=== PATIENT | female | born 1955 | race Caucasian/White ===

== ENCOUNTER 2017-04-23 13:32 | Emergency (ER) | payer MEDICARE ==
[~2017-04-23] VITALS: Ht 157.5 cm; Wt 77.1 kg
[~2017-04-23 13:32] MED LIST: APAP500 PO; ASPIR 8181 MG PO; BACTRIM DS TAB1 EACH PO; CARAFATE 1 GM TA1 GM PO; CIPRO500 MG PO; CIPROFLOXACIN500 M1 PO; CYCLOBENZAPRINE5 MG PO; FLEXERIL; FLEXERIL PO; FLOMAX0.4 MG PO; HYDROCODON-ACE1 EAC7 PO; HYDROCODON-ACE1 EAC8 PO; HYDROCODONE-AP1 EAC6 PO; KEFLEX500 MG PO; KETOCONAZOLE60 GM TP; LIPITOR 20 MG T20 M1 PO; NORCO 5-325 TA1 EACH PO; PAXIL10 MG; PERCOCET 5-3251 EACH PO; PERCOCET 7.5-31 EACH PO; REQUIP 0.25 M0.25 M1; REQUIP 0.25 M0.25 M1 PO; REQUIP5 MG PO; Synthroid PO; ZOFRAN ODT4 MG PO; ZOFRAN4 MG PO
[2017-04-23 14:31] LABS: INFLUENZA A ANTIGEN None Detected (None Detect); INFLUENZA B ANTIGEN None Detected (None Detect)
[2017-04-23] MEDS ORDERED: FLONASE 0.05%50 MCG NASAL (15:45)
[2017-04-23] MEDS ORDERED: TESSALON PERLE100 MG PO (15:45)
[2017-04-23 15:55] VITALS: BP 110/65
== END 2017-04-23 15:57 | disposition home or self-care (01) ==
LOC: M.ERS 13:32
PROVIDERS: Family Medicine
DX: J06.9 Acute upper respiratory infection, unspecified (principal); B97.89 Other viral agents as the cause of diseases classified elsewhere; E03.9 Hypothyroidism, unspecified; J45.909 Unspecified asthma, uncomplicated; F17.210 Nicotine dependence, cigarettes, uncomplicated; Z87.442 Personal history of urinary calculi; Z98.890 Other specified postprocedural states; Z90.710 Acquired absence of both cervix and uterus; Z88.6 Allergy status to analgesic agent; Z88.0 Allergy status to penicillin

== ENCOUNTER 2017-07-19 21:48 | Emergency (ER) | payer MEDICARE ==
[~2017-07-19] VITALS: Ht 157.5 cm; Wt 77.1 kg
[~2017-07-19 21:48] MED LIST changes: +FLONASE 0.05%50 MCG NASAL; +TESSALON PERLE100 MG PO
[2017-07-19] MEDS ORDERED: FLEXERIL PO (21:59)
[2017-07-19 22:29] LABS: ABSOLUTE BASOPHILS 0.1 thou/uL (0.0-0.2); ABSOLUTE EOSINOPHILS 0.3 thou/uL (0.0-0.7); ABSOLUTE LYMPHOCYTES 2.5 thou/uL (0.8-5.3); ABSOLUTE MONOCYTES 0.9 thou/uL (0.0-1.2); ABSOLUTE NEUTROPHILS 5.9 thou/uL (1.6-8.1); HEMATOCRIT 38.6 % (37.0-47.0); HEMOGLOBIN 12.1 gm/dL (12.0-15.0); MCH 23.7 pg (26.0-34.0); MCHC 31.2 g/dL (28.0-37.0); NUCLEATED RBCS 0 /100WBC; PLATELET COUNT* 426 thou/uL (150-400); RBC 5.08 mil/uL (4.20-5.00); RDW-CV 18.8 % (10.5-14.5); WBC 9.7 thou/uL (4.0-11.0)
[2017-07-19 22:33] LABS: URINE BILIRUBIN NEGATIVE (Negative); URINE BLOOD TRACE (Negative); URINE CLARITY CLEAR; URINE COLOR YELLOW; URINE GLUCOSE-RANDOM NEGATIVE (Negative); URINE KETONES NEGATIVE (Negative); URINE NITRITE-REFLEX NEGATIVE (Negative); URINE PROTEIN NEGATIVE (Negative); URINE SPECIFIC GRAVITY 1.025 (1.005-1.030); URINE UROBILINOGEN 0.2 E.U./dl (0.2-1.0)
[2017-07-19 22:34] LABS: URINE LEUKOCYTES-REFLEX 2+ (Negative)
[2017-07-19 22:35] LABS: CALCIUM 9.2 mg/dL (8.5-10.1); CREATININE 0.9 mg/dL (0.6-1.3)
[2017-07-19 22:39] LABS: ALBUMIN 3.5 g/dL (3.4-5.0); TOTAL BILIRUBIN 0.2 mg/dL (<0.1-1.0); TOTAL PROTEIN 7.8 g/dL (6.4-8.2)
[2017-07-19 22:41] LABS: BACTERIA-REFLEX 1-9 Few /HPF (None Seen); CRYSTALS None Seen /LPF (None Seen); HYALINE CASTS 0-3 Few /LPF (None Seen); MUCUS 0-3 Light strn/LPF (None Seen); SQUAMOUS >10 Many /LPF (0-3); URINE RBC 0-2 Rare /HPF (0-2); URINE WBC-REFLEX 6-15 Few /HPF (0-5)
[2017-07-20] MEDS ORDERED: MACROBID 100 M100 M1 PO (00:27)
[2017-07-20] MEDS ORDERED: HYDROCODON-ACE1 EAC7 PO (00:27)
[2017-07-20 00:45] VITALS: BP 127/76
== END 2017-07-20 00:45 | disposition still patient (30) ==
LOC: M.ERS 21:48
PROVIDERS: Emergency Medicine
DX: N39.0 Urinary tract infection, site not specified (principal); E03.9 Hypothyroidism, unspecified; G25.81 Restless legs syndrome; J45.909 Unspecified asthma, uncomplicated; J44.9 Chronic obstructive pulmonary disease, unspecified; F17.210 Nicotine dependence, cigarettes, uncomplicated; Z87.442 Personal history of urinary calculi; Z90.710 Acquired absence of both cervix and uterus; Z88.6 Allergy status to analgesic agent; Z88.0 Allergy status to penicillin

== ENCOUNTER 2017-10-09 20:29 | Emergency (ER) | payer MEDICARE ==
[~2017-10-09] VITALS: Ht 157.5 cm; Wt 86.2 kg
[~2017-10-09 20:29] MED LIST changes: +MACROBID 100 M100 M1 PO
[2017-10-09 20:59] LABS: URINE BILIRUBIN NEGATIVE (Negative); URINE BLOOD TRACE (Negative); URINE CLARITY CLEAR; URINE COLOR YELLOW; URINE GLUCOSE-RANDOM NEGATIVE (Negative); URINE KETONES NEGATIVE (Negative); URINE LEUKOCYTES-REFLEX NEGATIVE (Negative); URINE NITRITE-REFLEX NEGATIVE (Negative); URINE PROTEIN NEGATIVE (Negative); URINE SPECIFIC GRAVITY 1.025 (1.005-1.030); URINE UROBILINOGEN 0.2 E.U./dl (0.2-1.0)
[2017-10-09] MEDS ORDERED: HYDROCODONE-AP1 EAC6 PO (21:36)
[2017-10-09 21:44] VITALS: BP 139/65
== END 2017-10-09 21:45 | disposition home or self-care (01) ==
LOC: M.ERS 20:29
PROVIDERS: Emergency Medicine
DX: R10.32 Left lower quadrant pain (principal); E03.9 Hypothyroidism, unspecified; G25.81 Restless legs syndrome; J45.909 Unspecified asthma, uncomplicated; F17.210 Nicotine dependence, cigarettes, uncomplicated; Z90.710 Acquired absence of both cervix and uterus; Z87.442 Personal history of urinary calculi; Z88.6 Allergy status to analgesic agent; Z88.0 Allergy status to penicillin

== ENCOUNTER 2017-11-25 22:37 | Inpatient (IN) | payer MEDICARE ==
[~2017-11-25] VITALS: Ht 157.5 cm; Wt 86.2 kg
[2017-11-25 22:40] VITALS: BP 154/85
[2017-11-25 23:06] LABS: ABSOLUTE BASOPHILS 0.1 thou/uL (0.0-0.2); ABSOLUTE EOSINOPHILS 0.3 thou/uL (0.0-0.7); ABSOLUTE LYMPHOCYTES 2.2 thou/uL (0.8-5.3); ABSOLUTE NEUTROPHILS 3.7 thou/uL (1.6-8.1); BASOPHILS 1.3 %; EOSINOPHILS 4.4 %; HEMATOCRIT 31.6 % (37.0-47.0); HEMOGLOBIN 9.7 gm/dL (12.0-15.0); LYMPHOCYTES 29.5 %; MCH 21.3 pg (26.0-34.0); MCHC 30.7 g/dL (28.0-37.0); MCV 69.3 fL (80.0-100.0); MPV 7.7 fl. (7.2-11.1); NUCLEATED RBCS 0 /100WBC; PLATELET COUNT* 456 thou/uL (150-400); POLYS 50.8 %; RBC 4.56 mil/uL (4.20-5.00); RDW-CV 20.1 % (10.5-14.5); WBC 7.3 thou/uL (4.0-11.0)
[2017-11-25 23:14] LABS: ANION GAP 8 mmol/L (7-16); BUN 13 mg/dL (7-18); CALCIUM 8.7 mg/dL (8.5-10.1); CHLORIDE 103 mmol/L (98-107); CO2 27 mmol/L (21-32); CREATININE 0.9 mg/dL (0.6-1.3); GLUCOSE 103 mg/dL (70-99); POTASSIUM 3.8 mmol/L (3.5-5.1); SODIUM 138 mmol/L (136-145)
[2017-11-25 23:24] LABS: ALBUMIN 3.4 g/dL (3.4-5.0); ALKALINE PHOSPHATASE 87 U/L (46-116); LIPASE 142 U/L (73-393); NT-PRO BRAIN NAT PEPTIDE 99 pg/mL (<300); SGOT 10 U/L (15-37); SGPT 17 U/L (30-65); TOTAL BILIRUBIN 0.2 mg/dL (<0.1-1.0); TROPONIN-I LEVEL <0.06 ng/mL (<0.06)
[2017-11-26 00:39] LABS: ANISOCYTOSIS 2+; HYPOCHROMASIA 2+; POIKILOCYTOSIS 2+; POLYCHROMASIA Occasional
[2017-11-26 00:40] LABS: MICROCYTES 2+; OVALOCYTES 1+; TARGET CELLS Occasional; TEARDROPS Occasional
[2017-11-26 00:41] LABS: SCHISTOCYTES Occasional
[2017-11-26 02:00] VITALS: BP 159/62
--- NOTE | 2017-11-26 03:40 | NUR ---
PT ARRIVED TO ROOM 227 AROUND 0230. ASSESSMENT COMPLETED CHARTED. SLIGHT COMPLAINTS OF SUBSTERNAL CHEST PAIN AND LOWER BACK PAIN. PT IS RESTING IN BED AT THIS TIME. RECONSILED MEDS PT KNOWS ABOUT AND SAID SHE WILL CALL TOMORROW TO FIND OUT THE REST OF HER MEDS FROM HER BOYFRIEND AND HAVE HER INHALERS BROUGHT UP. ABLE TO MAKE NEEDS KNOWN, UP AD ARPIT, WILL CONTINUE TO MONITOR.
[2017-11-26 08:25] VITALS: BP 119/57
[2017-11-26 12:09] VITALS: BP 119/77
--- NOTE | 2017-11-26 12:32 | EKG ---
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: : 1955 Requested By: Juwan Martinez Order Number: [id number] MD: Graeme Simon Measurements Intervals [place] Rate: 95 P: 47 SC: 124 QRS: 74 QRSD: 112 T: 45 QT: 417 QTc: 525 Interpretive Statements Sinus rhythm Borderline intraventricular conduction delay Borderline repolarization abnormality Prolonged QT interval Compared to ECG 05/23/2016 18:06:02 no change Electronically Signed On 11-26-2017 12:31:59 CDT by Graeme Simon [email or web address] <ELECTRONICALLY SIGNED> By: Graeme Simon MD, [facility] 11/26/17 1231 2242 2242 Graeme Simon MD, [facility] /EPI
--- NOTE | 2017-11-26 13:30 | NUR ---
RECEIVED REPORT FROM [facility] AND ASSUMED CARE OF PT @ 4133.PT IS A/I,VSS,TRACING SR ON THE MONITOR.LUNG SOUNDS ARE CLEAR DIMINSHED.LAST BM WAS YESTERDAY.IV RIGHT FOREARM PATENT AND SALINE LOCKED.PT IS CALM AND COOPERATIVE WITH C/O PAIN IN CHEST-RELIEF FROM MEDICATIONS.PT IS UP AD ARPIT IN ROOM.PT RESTING IN BED WITH CALL LIGHT WITHIN REACH.WILL CONTINUE TO MONITOR. CARDIOLOGY SAIGNED OFF AND OK FOR DISCHARGE.HOSPITALIST WANTS TO DO CTA IF NEGATIVE THEN PT OK FOR DISCHARGE.PT MADE NPO FOR TEST.NEW IV INSERTED IN LEFT AC.CTA COMPLETED WAITING FOR RESULTS.
[2017-11-26 13:36] VITALS: BP 119/77
--- NOTE | 2017-11-26 14:42 | NUR ---
PT OK FOR DISCHARGE.PAPERWORK COMPLETED AND GIVEN TO PT.IV REMOVED X2.HEART MONITOR REMOVED AND RETURNED TO NURSING STATION.ALL PERSONAL BELONGINGS PACKED AND TAKEN WITH PT.PT WAITING FOR RIDE IN ROOM UNTIL 1800.
--- NOTE | 2017-11-28 11:15 | CON ---
[address] [address] CONSULTATION Name: ROXANNA JOSEPH Room: [address] IN M.R.#: [id number] Admission: 11/26/17 Attend Phys: Willie Augustin, Discharge: 11/26/17 Date of : 57 Report #: [id number] THIS REPORT FOR: //name// CC: Angie Gamino Taiwo Redmondo DATE OF SERVICE: 11/26/2017 TYPE OF REPORT: Cardiology consultation. PRIMARY CARE PHYSICIAN: Angie Dinero D.O. HISTORY OF PRESENT ILLNESS: The patient is a 62-year-old single white female who I was asked to see in the hospital today after she complained of chest pain. The patient has an extensive past medical history. She previously lived in [place]. She has a history of recurrent bleeding and was diagnosed with Emsoj-Ubpid-Wfwjk syndrome. 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 She has had frequent nosebleeds. She was actually admitted here to [facility] in March 2016 with chest pain and shortness of breath. She was felt to have bronchitis. Previous cardiac workup included an echocardiogram at that time that showed normal left ventricular function but otherwise, no pericardial effusion and was unremarkable. The patient is not very active. She currently is followed by statistician. She was in the Emergency Room here in September complaining of flank pain. She had a history of kidney stones. She came to the Emergency Room last night. She states she has not felt well for the past couple of days. She has felt nauseated. She has had dry heaves, loose stools. She apparently did have a stress test years ago. She is also complaining of intermittent sharp chest pain. It is not related to exertion or meals. There is no radiation of the pain into her arm or jaw. It does go into her back. It is not related to lifting. She denied any trauma to the chest or leg pain. She has had some edema. She does have chronic shortness of breath from asthma. She does fall occasionally. She notes occasional episodes of her heart will race. She is admitted for further evaluation and treatment. 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 She had a hysterectomy and bladder tuck. She has a history of hyperlipidemia. MEDICATIONS: Consist of Macrobid, hydrocodone, Synthroid, Requip and Flexeril. ALLERGIES: She is intolerance to PENICILLIN. FAMILY HISTORY: Significant for heart [place] [address] CONSULTATION Name: ROXANNA JOSEPH Room: [address]#: [id number] Admission: 11/26/17 Attend Phys: Willie Augustin, Discharge: 11/26/17 Date of : 57 Report #: [id number] SOCIAL HISTORY: She is , lives with a friend in [place]. She used to smoke a pack of cigarettes a day, quit 5 years ago. She does not drink alcohol. REVIEW OF SYSTEMS: She has apparently had a history of stroke in the past from AV malformation leading to confusion. She has a history of COPD. She has had previous GI workup by Dr. Dunn. She has a history of telangiectasias. She has had multiple kidney stones in the past. No history of cancer. She has been diagnosed with manic depressive illness in the past. PHYSICAL EXAMINATION: GENERAL: Revealed a middle-aged female lying in bed. She appeared in no acute distress. VITAL SIGNS: Showed a blood pressure 140/70, pulse is 80 and she is afebrile. HEENT: She was anicteric. Conjunctivae pink. Mucous membranes moist. NECK: Veins nondistended. No carotid bruits. Neck was supple. CHEST: Revealed distant breath sounds. CARDIOVASCULAR: Regular rate and rhythm without murmur or rub. ABDOMEN: Soft. EXTREMITIES: Had no edema. Dorsalis pedis pulse 1+ bilaterally. SKIN: Warm and dry. NEUROLOGICAL: Nonfocal. RADIOLOGICAL DATA: Her ECG last night on admission in the Emergency Room showed a sinus rhythm. There was nonspecific ST-segment changes. Her additional workup in the emergency room last night, she had a portable chest x-ray that showed normal heart size and clear lung kumar. LABORATORY DATA: She has sodium 138 and creatinine 0.9. Liver function studies were normal. Troponin 0.06. Previous cholesterol was 262, triglyceride 78, HDL 52 and LDL 195. Previous TSH was 56. Her white blood cell count 7.3, hemoglobin 9.7 and it was actually 7.0 back in 2016 and her hematocrit is 31.6. IMPRESSION AND RECOMMENDATIONS: 1. Chest pain. Atypical for angina. The patient does have risk factors. Suspect noncardiac. I would recommend discharge. 2. History of Fgfac-Buqfe-Fgnpr syndrome. 3. History of AVMs with bleeding. 4. Anemia. 5. Hyperlipidemia. I would recommend a statin drug. 6. Manic depressive illness. 7. Hypothyroidism. [address] [address] CONSULTATION Name: ROXANNA JOSEPH Room: [facility] IN [place].#: [id number] Admission: 11/26/17 Attend Phys: Willie Augustin, Discharge: 11/26/17 Date of : 57 Report #: [id number] 8. History of kidney stones. 9. Previous tobacco abuse. <ELECTRONICALLY SIGNED> By: Graeme Simon MD, FACC 11/28/17 1115 0952 2226Daaaliyah Simon MD, FACEllen /nt
== END 2017-11-26 19:17 | disposition home or self-care (01) | DRG 311 ==
LOC: M.ERS 22:37 → M.TBA-ER 11-26 00:31 → M.2W 11-26 01:02
PROVIDERS: Emergency Medicine Emergency Medical Services; ADMIT Family Medicine
DX: I20.8 Other forms of angina pectoris (principal); F30.9 Manic episode, unspecified; E03.9 Hypothyroidism, unspecified; G25.81 Restless legs syndrome; J45.909 Unspecified asthma, uncomplicated; J44.9 Chronic obstructive pulmonary disease, unspecified; E78.5 Hyperlipidemia, unspecified; I78.0 Hereditary hemorrhagic telangiectasia; D64.9 Anemia, unspecified; Z87.891 Personal history of nicotine dependence; Z88.6 Allergy status to analgesic agent; Z88.0 Allergy status to penicillin; Z88.8 Allergy status to other drugs, medicaments and biological substances; Z87.442 Personal history of urinary calculi; Z90.710 Acquired absence of both cervix and uterus; Z82.49 Family history of ischemic heart disease and other diseases of the circulatory system

== ENCOUNTER → 2017-12-06 | Outpatient (CLI) | payer MEDICARE ==
[~2017-12-06] MED LIST changes: +AMARYL2 MG PO; +ARNUITY ELLIP100 MCG INH; +LISINOPRIL10 MG PO; +NORCO 5-325 TA1 EAC1 PO; +PAXIL10 MG PO; +ROSUVASTATIN CA10 MG PO; +TRAZODONE HCL50 MG PO; +VENTOLIN HFA 1818 GM INH; +VITAMIN D250000 UNIT PO; +ZANAFLEX4 MG PO
== END ==
LOC: M.RAD 12:32
DX: J44.9 Chronic obstructive pulmonary disease, unspecified (principal); E03.9 Hypothyroidism, unspecified

== ENCOUNTER 2018-01-03 21:22 | Emergency (ER) | payer MEDICARE ==
[~2018-01-03] VITALS: Ht 157.5 cm; Wt 86.6 kg
[~2018-01-03 21:22] MED LIST changes: -AMARYL2 MG PO; -ARNUITY ELLIP100 MCG INH; -LISINOPRIL10 MG PO; -NORCO 5-325 TA1 EAC1 PO; -PAXIL10 MG PO; -ROSUVASTATIN CA10 MG PO; -TRAZODONE HCL50 MG PO; -VENTOLIN HFA 1818 GM INH; -VITAMIN D250000 UNIT PO; -ZANAFLEX4 MG PO
[2018-01-03] MEDS ORDERED: VENTOLIN HFA 1818 GM INH (21:33)
[2018-01-03] MEDS ORDERED: LISINOPRIL10 MG PO (21:33)
[2018-01-03] MEDS ORDERED: PAXIL10 MG PO (21:34)
[2018-01-03] MEDS ORDERED: TESSALON PERLE100 MG PO (21:34)
[2018-01-03] MEDS ORDERED: TRAZODONE HCL50 MG PO (21:34)
[2018-01-03 22:04] LABS: ABSOLUTE BASOPHILS 0.1 thou/uL (0.0-0.2); ABSOLUTE EOSINOPHILS 0.2 thou/uL (0.0-0.7); ABSOLUTE LYMPHOCYTES 1.7 thou/uL (0.8-5.3); ABSOLUTE MONOCYTES 0.8 thou/uL (0.0-1.2); ABSOLUTE NEUTROPHILS 5.2 thou/uL (1.6-8.1); BASOPHILS 0.7 %; HEMATOCRIT 28.6 % (37.0-47.0); HEMOGLOBIN 8.7 gm/dL (12.0-15.0); LYMPHOCYTES 21.5 %; MCH 20.7 pg (26.0-34.0); MCHC 30.3 g/dL (28.0-37.0); MCV 68.3 fL (80.0-100.0); MONOCYTES 10.4 %; MPV 7.4 fl. (7.2-11.1); NUCLEATED RBCS 0 /100WBC; PLATELET COUNT* 493 thou/uL (150-400); POLYS 64.4 %; RBC 4.18 mil/uL (4.20-5.00); RDW-CV 20.8 % (10.5-14.5)
[2018-01-03 22:09] LABS: ANION GAP 5 mmol/L (7-16); BUN 16 mg/dL (7-18); CALCIUM 8.5 mg/dL (8.5-10.1); CHLORIDE 106 mmol/L (98-107); CO2 28 mmol/L (21-32); CREATININE 0.7 mg/dL (0.6-1.3); GLUCOSE 102 mg/dL (70-99); POTASSIUM 3.7 mmol/L (3.5-5.1); SODIUM 139 mmol/L (136-145)
[2018-01-03 22:23] LABS: ANISOCYTOSIS 1+; OVALOCYTES Occasional; PLATELET ESTIMATE INCREASED; POIKILOCYTOSIS Occasional
[2018-01-03 22:24] LABS: ALKALINE PHOSPHATASE 82 U/L (46-116); HYPOCHROMASIA 2+; LIPASE 112 U/L (73-393); MICROCYTES 3+; NT-PRO BRAIN NAT PEPTIDE 106 pg/mL (<300); SGOT 11 U/L (15-37); SGPT 16 U/L (30-65); TOTAL BILIRUBIN 0.2 mg/dL (<0.1-1.0); TOTAL PROTEIN 6.7 g/dL (6.4-8.2); TROPONIN-I LEVEL <0.06 ng/mL (<0.06)
[2018-01-03] MEDS ORDERED: NORCO 5-325 TA1 EAC1 PO (22:31)
[2018-01-03 23:03] VITALS: BP 130/80
--- NOTE | 2018-01-04 16:41 | EKG ---
[place] [address] ELECTROCARDIOGRAM REPORT Name: ROXANNA JOSEPH Room: 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
== END 2018-01-03 23:04 | disposition home or self-care (01) ==
LOC: M.ERS 21:22
PROVIDERS: Nurse Practitioner
DX: M54.9 Dorsalgia, unspecified (principal); M79.89 Other specified soft tissue disorders; R20.2 Paresthesia of skin; E03.9 Hypothyroidism, unspecified; J44.9 Chronic obstructive pulmonary disease, unspecified; Z90.710 Acquired absence of both cervix and uterus; Z90.2 Acquired absence of lung [part of]; F17.210 Nicotine dependence, cigarettes, uncomplicated; Z88.0 Allergy status to penicillin; Z88.6 Allergy status to analgesic agent

== ENCOUNTER 2018-01-08 21:19 | Emergency (ER) | payer MEDICARE ==
[~2018-01-08] VITALS: Ht 157.5 cm; Wt 86.6 kg
[~2018-01-08 21:19] MED LIST changes: +LISINOPRIL10 MG PO; +NORCO 5-325 TA1 EAC1 PO; +PAXIL10 MG PO; +TRAZODONE HCL50 MG PO; +VENTOLIN HFA 1818 GM INH
[2018-01-08 23:27] LABS: URINE BILIRUBIN NEGATIVE (Negative); URINE BLOOD TRACE (Negative); URINE CLARITY CLEAR; URINE COLOR YELLOW; URINE GLUCOSE-RANDOM NEGATIVE (Negative); URINE KETONES NEGATIVE (Negative); URINE LEUKOCYTES-REFLEX 1+ (Negative); URINE NITRITE-REFLEX NEGATIVE (Negative); URINE PROTEIN NEGATIVE (Negative); URINE SPECIFIC GRAVITY 1.015 (1.005-1.030)
[2018-01-09] MEDS ORDERED: ZANAFLEX4 MG PO (00:24)
[2018-01-09 00:44] VITALS: BP 133/81
[2018-01-09 00:56] LABS: CASTS None Seen /LPF (None Seen); SQUAMOUS >10 Many /LPF (0-3)
[2018-01-09 00:57] LABS: BACTERIA-REFLEX 1-9 Few /HPF (None Seen); CRYSTALS None Seen /LPF (None Seen); URINE RBC 0-2 Rare /HPF (0-2); URINE WBC-REFLEX 6-15 Few /HPF (0-5)
== END 2018-01-09 00:46 | disposition home or self-care (01) ==
LOC: M.ERS 21:19
PROVIDERS: Nurse Practitioner Family
DX: S16.1XXA Strain of muscle, fascia and tendon at neck level, initial encounter (principal); S93.491A Sprain of other ligament of right ankle, initial encounter; J44.9 Chronic obstructive pulmonary disease, unspecified; E03.9 Hypothyroidism, unspecified; Z87.442 Personal history of urinary calculi; Z90.710 Acquired absence of both cervix and uterus; Z79.899 Other long term (current) drug therapy; W18.39XA Other fall on same level, initial encounter; Y93.89 Activity, other specified; Y92.89 Other specified places as the place of occurrence of the external cause; Y99.8 Other external cause status

== ENCOUNTER 2018-02-08 21:43 | Emergency (ER) | payer OTHER, MEDICAID ==
[~2018-02-08] VITALS: Ht 157.5 cm; Wt 84.8 kg
[~2018-02-08 21:43] MED LIST changes: +ZANAFLEX4 MG PO
[2018-02-08 22:15] LABS: URINE BILIRUBIN NEGATIVE (Negative); URINE BLOOD TRACE (Negative); URINE CLARITY CLEAR; URINE COLOR YELLOW; URINE GLUCOSE-RANDOM NEGATIVE (Negative); URINE KETONES NEGATIVE (Negative); URINE LEUKOCYTES-REFLEX TRACE (Negative); URINE NITRITE-REFLEX NEGATIVE (Negative); URINE PROTEIN NEGATIVE (Negative); URINE SPECIFIC GRAVITY 1.015 (1.005-1.030); URINE UROBILINOGEN 0.2 E.U./dl (0.2-1.0)
[2018-02-08 22:16] LABS: ABSOLUTE BASOPHILS 0.1 thou/uL (0.0-0.2); ABSOLUTE LYMPHOCYTES 2.1 thou/uL (0.8-5.3); ABSOLUTE MONOCYTES 1.3 thou/uL (0.0-1.2); ABSOLUTE NEUTROPHILS 9.4 thou/uL (1.6-8.1); EOSINOPHILS 0.3 %; HEMATOCRIT 31.5 % (37.0-47.0); HEMOGLOBIN 9.4 gm/dL (12.0-15.0); LYMPHOCYTES 16.3 %; MCH 20.5 pg (26.0-34.0); MCHC 29.8 g/dL (28.0-37.0); MCV 68.7 fL (80.0-100.0); MONOCYTES 10.3 %; NUCLEATED RBCS 0 /100WBC; PLATELET COUNT* 540 thou/uL (150-400); POLYS 72.1 %; RBC 4.58 mil/uL (4.20-5.00); RDW-CV 21.2 % (10.5-14.5); WBC 13.1 thou/uL (4.0-11.0)
[2018-02-08 22:29] LABS: ANION GAP 6 mmol/L (7-16); BUN 17 mg/dL (7-18); CALCIUM 9.2 mg/dL (8.5-10.1); CHLORIDE 104 mmol/L (98-107); CO2 27 mmol/L (21-32); CREATININE 0.8 mg/dL (0.6-1.3); GLUCOSE 114 mg/dL (70-99); POTASSIUM 4.1 mmol/L (3.5-5.1); SODIUM 137 mmol/L (136-145)
[2018-02-08 22:31] LABS: MUCUS None Seen strn/LPF (None Seen); SQUAMOUS >10 Many /LPF (0-3)
[2018-02-08 22:32] LABS: BACTERIA-REFLEX 1-9 Few /HPF (None Seen); CASTS None Seen /LPF (None Seen); CRYSTALS None Seen /LPF (None Seen); URINE RBC 0-2 Rare /HPF (0-2); URINE WBC-REFLEX 0-5 Rare /HPF (0-5)
[2018-02-08 22:36] LABS: ALBUMIN 3.4 g/dL (3.4-5.0); ALKALINE PHOSPHATASE 78 U/L (46-116); SGOT 11 U/L (15-37); SGPT 24 U/L (30-65); TOTAL BILIRUBIN 0.2 mg/dL (<0.1-1.0); TOTAL PROTEIN 7.1 g/dL (6.4-8.2); TROPONIN-I LEVEL <0.06 ng/mL (<0.06)
[2018-02-08] MEDS ORDERED: MACROBID 100 M100 M1 PO (22:39)
[2018-02-08 22:47] VITALS: BP 150/87
[2018-02-08 22:56] LABS: OVALOCYTES Occasional; PLATELET ESTIMATE INCREASED; POLYCHROMASIA Occasional
[2018-02-08 22:57] LABS: ANISOCYTOSIS 2+; MICROCYTES 3+
[2018-02-08 22:58] LABS: HYPOCHROMASIA 2+
--- NOTE | 2018-02-09 10:21 | EKG ---
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
== END 2018-02-08 22:48 | disposition home or self-care (01) ==
LOC: M.ERS 21:43
PROVIDERS: Emergency Medicine
DX: N39.0 Urinary tract infection, site not specified (principal); J44.9 Chronic obstructive pulmonary disease, unspecified; E03.9 Hypothyroidism, unspecified; G25.81 Restless legs syndrome; F17.210 Nicotine dependence, cigarettes, uncomplicated; Z88.0 Allergy status to penicillin; Z88.6 Allergy status to analgesic agent; Z87.442 Personal history of urinary calculi; Z90.710 Acquired absence of both cervix and uterus

== ENCOUNTER 2018-02-16 19:23 | Emergency (ER) | payer OTHER, MEDICAID ==
[~2018-02-16] VITALS: Ht 157.5 cm; Wt 84.8 kg
[2018-02-16] MEDS ORDERED: VITAMIN D250000 UNIT PO (19:38)
[2018-02-16] MEDS ORDERED: ROSUVASTATIN CA10 MG PO (19:38)
[2018-02-16] MEDS ORDERED: AMARYL2 MG PO (19:39)
[2018-02-16] MEDS ORDERED: ARNUITY ELLIP100 MCG INH (19:40)
[2018-02-16 19:55] LABS: URINE BILIRUBIN NEGATIVE (Negative); URINE BLOOD NEGATIVE (Negative); URINE CLARITY CLEAR; URINE COLOR YELLOW; URINE GLUCOSE-RANDOM NEGATIVE (Negative); URINE KETONES NEGATIVE (Negative); URINE LEUKOCYTES-REFLEX 1+ (Negative); URINE NITRITE-REFLEX NEGATIVE (Negative); URINE PROTEIN NEGATIVE (Negative); URINE SPECIFIC GRAVITY 1.025 (1.005-1.030)
[2018-02-16 20:05] LABS: ABSOLUTE BASOPHILS 0.1 thou/uL (0.0-0.2); ABSOLUTE EOSINOPHILS 0.2 thou/uL (0.0-0.7); ABSOLUTE LYMPHOCYTES 1.4 thou/uL (0.8-5.3); ABSOLUTE MONOCYTES 1.2 thou/uL (0.0-1.2); ABSOLUTE NEUTROPHILS 7.9 thou/uL (1.6-8.1); BASOPHILS 0.5 %; EOSINOPHILS 1.8 %; HEMATOCRIT 29.3 % (37.0-47.0); HEMOGLOBIN 8.8 gm/dL (12.0-15.0); LYMPHOCYTES 12.7 %; MCH 20.7 pg (26.0-34.0); MCHC 29.9 g/dL (28.0-37.0); MCV 69.3 fL (80.0-100.0); MPV 7.2 fl. (7.2-11.1); NUCLEATED RBCS 0 /100WBC; PLATELET COUNT* 498 thou/uL (150-400); RBC 4.23 mil/uL (4.20-5.00); RDW-CV 20.9 % (10.5-14.5); WBC 10.7 thou/uL (4.0-11.0)
[2018-02-16 20:09] LABS: SQUAMOUS 4-10 Moderate /LPF (0-3); URINE WBC-REFLEX 0-5 Rare /HPF (0-5)
[2018-02-16 20:10] LABS: BACTERIA-REFLEX None Seen /HPF (None Seen); CASTS None Seen /LPF (None Seen); CRYSTALS None Seen /LPF (None Seen); URINE RBC None Seen /HPF (0-2)
[2018-02-16 20:18] LABS: CALCIUM 8.4 mg/dL (8.5-10.1); CREATININE 0.8 mg/dL (0.6-1.3)
[2018-02-16 20:23] LABS: ALBUMIN 2.9 g/dL (3.4-5.0); TOTAL BILIRUBIN 0.3 mg/dL (<0.1-1.0); TOTAL PROTEIN 6.7 g/dL (6.4-8.2)
[2018-02-16 20:45] LABS: PLATELET ESTIMATE INCREASED
[2018-02-16 20:46] LABS: HYPOCHROMASIA 2+; TARGET CELLS Occasional
[2018-02-16 20:47] LABS: ANISOCYTOSIS 2+; MICROCYTES 3+
[2018-02-16 20:49] LABS: LARGE PLATELETS RARE
[2018-02-16 20:51] LABS: OVALOCYTES 1+
[2018-02-16] MEDS ORDERED: FLOMAX0.4 MG PO (20:53)
[2018-02-16] MEDS ORDERED: HYDROCODONE-AP1 EAC6 PO (20:53)
[2018-02-16] MEDS ORDERED: ZOFRAN4 MG PO (20:53)
[2018-02-16 21:07] VITALS: BP 131/55
== END 2018-02-16 21:08 | disposition home or self-care (01) ==
LOC: M.ERS 19:23
PROVIDERS: Nurse Practitioner
DX: N20.0 Calculus of kidney (principal); E03.9 Hypothyroidism, unspecified; G25.81 Restless legs syndrome; J45.909 Unspecified asthma, uncomplicated; J44.9 Chronic obstructive pulmonary disease, unspecified; F17.210 Nicotine dependence, cigarettes, uncomplicated; Z90.710 Acquired absence of both cervix and uterus; Z88.6 Allergy status to analgesic agent; Z88.0 Allergy status to penicillin; Z87.442 Personal history of urinary calculi

== ENCOUNTER 2018-03-22 19:11 | Emergency (ER) | payer OTHER, MEDICAID ==
[~2018-03-22] VITALS: Ht 157.5 cm; Wt 81.7 kg
[~2018-03-22 19:11] MED LIST changes: +AMARYL2 MG PO; +ARNUITY ELLIP100 MCG INH; +ROSUVASTATIN CA10 MG PO; +VITAMIN D250000 UNIT PO
[2018-03-22 19:53] LABS: URINE BILIRUBIN NEGATIVE (Negative); URINE BLOOD TRACE (Negative); URINE CLARITY CLEAR; URINE COLOR YELLOW; URINE GLUCOSE-RANDOM NEGATIVE (Negative); URINE KETONES NEGATIVE (Negative); URINE LEUKOCYTES-REFLEX 1+ (Negative); URINE NITRITE-REFLEX NEGATIVE (Negative); URINE PROTEIN NEGATIVE (Negative); URINE SPECIFIC GRAVITY >= 1.030 (1.005-1.030); URINE UROBILINOGEN 0.2 E.U./dl (0.2-1.0)
[2018-03-22 20:04] LABS: SQUAMOUS 4-10 Moderate /LPF (0-3)
[2018-03-22 20:05] LABS: BACTERIA-REFLEX 1-9 Few /HPF (None Seen); CASTS None Seen /LPF (None Seen); CRYSTALS None Seen /LPF (None Seen); URINE RBC 0-2 Rare /HPF (0-2); URINE WBC-REFLEX 6-15 Few /HPF (0-5)
[2018-03-22 21:14] LABS: ABSOLUTE BASOPHILS 0.1 thou/uL (0.0-0.2); ABSOLUTE EOSINOPHILS 0.2 thou/uL (0.0-0.7); ABSOLUTE LYMPHOCYTES 1.5 thou/uL (0.8-5.3); ABSOLUTE MONOCYTES 0.9 thou/uL (0.0-1.2); ABSOLUTE NEUTROPHILS 4.2 thou/uL (1.6-8.1); BASOPHILS 0.8 %; EOSINOPHILS 3.5 %; HEMATOCRIT 25.5 % (37.0-47.0); HEMOGLOBIN 7.7 gm/dL (12.0-15.0); LYMPHOCYTES 22.3 %; MCH 21.2 pg (26.0-34.0); MCHC 30.4 g/dL (28.0-37.0); MCV 69.7 fL (80.0-100.0); MONOCYTES 12.7 %; MPV 7.7 fl. (7.2-11.1); NUCLEATED RBCS 0 /100WBC; PLATELET COUNT* 371 thou/uL (150-400); POLYS 60.7 %; RBC 3.66 mil/uL (4.20-5.00); RDW-CV 19.9 % (10.5-14.5); WBC 6.9 thou/uL (4.0-11.0)
[2018-03-22 21:22] LABS: CALCIUM 8.1 mg/dL (8.5-10.1); CREATININE 0.7 mg/dL (0.6-1.3)
[2018-03-22 21:27] LABS: ALBUMIN 2.7 g/dL (3.4-5.0); TOTAL BILIRUBIN 0.2 mg/dL (<0.1-1.0); TOTAL PROTEIN 6.1 g/dL (6.4-8.2)
[2018-03-22] MEDS ORDERED: PYRIDIUM100 M1 PO (21:39)
[2018-03-22] MEDS ORDERED: KEFLEX500 M1 PO (21:39)
[2018-03-22] MEDS ORDERED: ACETAMINOPHEN-1 EAC1 PO (21:39)
[2018-03-22 22:22] VITALS: BP 113/60
== END 2018-03-22 22:23 | disposition home or self-care (01) ==
LOC: M.ERS 19:11
PROVIDERS: Nurse Practitioner Family
DX: N39.0 Urinary tract infection, site not specified (principal); E03.9 Hypothyroidism, unspecified; G25.81 Restless legs syndrome; J45.909 Unspecified asthma, uncomplicated; J44.9 Chronic obstructive pulmonary disease, unspecified; F17.210 Nicotine dependence, cigarettes, uncomplicated; Z88.0 Allergy status to penicillin; Z88.6 Allergy status to analgesic agent; Z87.442 Personal history of urinary calculi; Z90.710 Acquired absence of both cervix and uterus

== ENCOUNTER → 2018-03-30 | Outpatient (CLI) | payer OTHER, MEDICAID ==
[~2018-03-30] MED LIST changes: +ACETAMINOPHEN-1 EAC1 PO; +KEFLEX500 M1 PO; +PYRIDIUM100 M1 PO
[2018-03-30 15:42] LABS: HEMATOCRIT 31.6 % (37.0-47.0); HEMOGLOBIN 9.5 gm/dL (12.0-15.0); MCH 20.2 pg (26.0-34.0); MCHC 29.9 g/dL (28.0-37.0); MCV 67.4 fL (80.0-100.0); MPV 7.1 fl. (7.2-11.1); NUCLEATED RBCS 0 /100WBC; PLATELET COUNT* 533 thou/uL (150-400); WBC 8.2 thou/uL (4.0-11.0)
[2018-03-30 15:44] LABS: ABSOLUTE BASOPHILS 0.1 thou/uL (0.0-0.2); ABSOLUTE EOSINOPHILS 0.2 thou/uL (0.0-0.7); ABSOLUTE LYMPHOCYTES 1.8 thou/uL (0.8-5.3); ABSOLUTE MONOCYTES 0.9 thou/uL (0.0-1.2); ABSOLUTE NEUTROPHILS 5.2 thou/uL (1.6-8.1); BASOPHILS 1.3 %; EOSINOPHILS 2.1 %; LYMPHOCYTES 21.5 %; MONOCYTES 11.3 %; POLYS 63.8 %
[2018-03-30 16:04] LABS: ANISOCYTOSIS 1+; HYPOCHROMASIA 2+; PLATELET ESTIMATE INCREASED; POIKILOCYTOSIS 1+
[2018-03-30 16:05] LABS: MICROCYTES 3+
== END ==
LOC: M.LAB 15:22
PROVIDERS: Family Medicine
DX: D64.9 Anemia, unspecified (principal); I78.0 Hereditary hemorrhagic telangiectasia

== ENCOUNTER 2018-05-26 17:43 | Emergency (ER) | payer OTHER, MEDICAID ==
[~2018-05-26] VITALS: Ht 157.5 cm; Wt 81.7 kg
[2018-05-26] MEDS ORDERED: TRAZODONE HCL50 MG PO (17:53)
[2018-05-26 18:25] LABS: INFLUENZA A ANTIGEN None Detected (None Detect); INFLUENZA B ANTIGEN None Detected (None Detect)
[2018-05-26] MEDS ORDERED: DOXYCYCLINE 10100 MG PO (18:50)
[2018-05-26] MEDS ORDERED: PREDNISONE 10 M10 MG PO (18:50)
[2018-05-26 19:10] VITALS: BP 144/65
== END 2018-05-26 19:10 | disposition home or self-care (01) ==
LOC: M.ERS 17:43
PROVIDERS: Nurse Practitioner Family
DX: J44.1 Chronic obstructive pulmonary disease with (acute) exacerbation (principal); E03.9 Hypothyroidism, unspecified; Z90.710 Acquired absence of both cervix and uterus; Z90.2 Acquired absence of lung [part of]; F17.210 Nicotine dependence, cigarettes, uncomplicated; Z88.0 Allergy status to penicillin; Z88.6 Allergy status to analgesic agent; Z88.8 Allergy status to other drugs, medicaments and biological substances

== ENCOUNTER 2018-06-28 00:52 | Inpatient (IN) | payer OTHER, MEDICAID ==
[~2018-06-28] VITALS: Ht 157.5 cm; Wt 81.6 kg
[~2018-06-28 00:52] MED LIST changes: +DOXYCYCLINE 10100 MG PO; +PREDNISONE 10 M10 MG PO
[2018-06-28 01:03] VITALS: BP 184/78
[2018-06-28 02:01] LABS: ABSOLUTE BASOPHILS 0.1 thou/uL (0.0-0.2); ABSOLUTE EOSINOPHILS 0.3 thou/uL (0.0-0.7); ABSOLUTE LYMPHOCYTES 1.2 thou/uL (0.8-5.3); ABSOLUTE NEUTROPHILS 6.2 thou/uL (1.6-8.1); BASOPHILS 0.8 %; HEMATOCRIT 24.2 % (37.0-47.0); HEMOGLOBIN 7.4 gm/dL (12.0-15.0); LYMPHOCYTES 13.6 %; MCH 20.2 pg (26.0-34.0); MCHC 30.5 g/dL (28.0-37.0); MCV 66.2 fL (80.0-100.0); MONOCYTES 11.5 %; MPV 6.7 fl. (7.2-11.1); NUCLEATED RBCS 0 /100WBC; PLATELET COUNT* 409 thou/uL (150-400); POLYS 71.1 %; RBC 3.65 mil/uL (4.20-5.00); RDW-CV 21.6 % (10.5-14.5); WBC 8.8 thou/uL (4.0-11.0)
[2018-06-28 02:10] LABS: URINE BILIRUBIN NEGATIVE (Negative); URINE BLOOD TRACE (Negative); URINE CLARITY CLEAR; URINE COLOR YELLOW; URINE GLUCOSE-RANDOM NEGATIVE (Negative); URINE KETONES NEGATIVE (Negative); URINE NITRITE-REFLEX NEGATIVE (Negative); URINE PROTEIN NEGATIVE (Negative); URINE SPECIFIC GRAVITY <= 1.005 (1.005-1.030); URINE UROBILINOGEN 0.2 E.U./dl (0.2-1.0)
[2018-06-28 02:15] LABS: INR 0.9; PROTIME 9.7 Seconds (9.20-11.50)
[2018-06-28 02:16] LABS: URINE LEUKOCYTES-REFLEX 2+ (Negative)
[2018-06-28 02:19] LABS: SQUAMOUS 0-3 Few /LPF (0-3); TRANSITIONAL EPITHEL CELL 0-3 Few /LPF (None Seen)
[2018-06-28 02:20] LABS: BACTERIA-REFLEX >30 Many /HPF (None Seen); CASTS None Seen /LPF (None Seen); CRYSTALS None Seen /LPF (None Seen); MUCUS 4-6 Moderate strn/LPF (None Seen); RENAL EPITHELIAL CELLS 0-3 Few /LPF (None Seen); URINE RBC 3-10 Few /HPF (0-2); URINE WBC-REFLEX >25 Many /HPF (0-5); WBC CLUMPS Moderate (None Seen)
[2018-06-28 02:23] LABS: ANION GAP 8 mmol/L (7-16); BUN 12 mg/dL (7-18); CALCIUM 8.8 mg/dL (8.5-10.1); CHLORIDE 104 mmol/L (98-107); CO2 28 mmol/L (21-32); CREATININE 0.8 mg/dL (0.6-1.3); GLUCOSE 124 mg/dL (70-99); POTASSIUM 3.8 mmol/L (3.5-5.1); SODIUM 140 mmol/L (136-145); TROPONIN-I LEVEL <0.06 ng/mL (<0.06)
[2018-06-28 02:29] LABS: ALBUMIN 2.7 g/dL (3.4-5.0); ALKALINE PHOSPHATASE 92 U/L (46-116); LIPASE 104 U/L (73-393); NT-PRO BRAIN NAT PEPTIDE 79 pg/mL (<300); SGOT 9 U/L (15-37); SGPT 18 U/L (30-65); TOTAL BILIRUBIN 0.2 mg/dL (<0.1-1.0); TOTAL PROTEIN 6.3 g/dL (6.4-8.2)
[2018-06-28 03:03] LABS: ANISOCYTOSIS 2+; HYPOCHROMASIA 2+; MICROCYTES 2+; OVALOCYTES 1+; POIKILOCYTOSIS 2+; SCHISTOCYTES 1+
[2018-06-28 03:04] LABS: POLYCHROMASIA Occasional
[2018-06-28 04:09] VITALS: BP 131/84
[2018-06-28 06:53] VITALS: BP 113/52; BP 117/66; BP 126/61; BP 132/62; BP 137/60
[2018-06-28 07:48] LABS: AMP/METHAMP Negative (Negative); BARBITURATES Negative (Negative); BENZODIAZEPINES Negative (Negative); COCAINE Negative (Negative); METHADONE Negative (Negative); OPIATES Negative (Negative); PCP Negative (Negative); THC Negative (Negative)
[2018-06-28 08:00] VITALS: BP 113/52
[2018-06-28 12:17] VITALS: BP 113/52
[2018-06-28 12:26] LABS: HEMATOCRIT 31.7 % (37.0-47.0); MCH 21.1 pg (26.0-34.0); MCHC 30.5 g/dL (28.0-37.0); MCV 69.3 fL (80.0-100.0); MPV 7.3 fl. (7.2-11.1); RBC 4.57 mil/uL (4.20-5.00); RDW-CV 23.5 % (10.5-14.5); WBC 10.8 thou/uL (4.0-11.0)
[2018-06-28 12:32] LABS: HEMOGLOBIN 9.7 gm/dL (12.0-15.0)
--- NOTE | 2018-06-28 13:44 | EKG ---
[place] [address] ELECTROCARDIOGRAM REPORT Name: ROXANNA JOSEPH Room: [address] ADM IN .R.#: [id number] Admission: 06/28/18 Attend Phys: James Ayala MD Discharge: Date of : 57 Report #: [id number] THIS REPORT FOR: //name// [facility] ED Test Date: 2018-06-28 Test Time: 02:41:17 Pat Name: ROXANNA JOSEPH Department: Room: [facility] Gender: F Endocrinologist: Rc : 1955 Requested By: Juan Carlos Laurent Order Number: [id number] MD: Phong Nugent Measurements Intervals [place] Rate: 99 P: 58 RI: 144 QRS: 76 QRSD: 101 T: 64 QT: 372 QTc: 478 Interpretive Statements Sinus rhythm Borderline repol abnormality, diffuse leads Baseline wander in lead(s) V3 Compared to ECG 02/08/2018 22:19:11 T-wave abnormality no longer present Electronically Signed On 06-28-2018 13:44:19 CDT by Phong Nugent [email or web address] <ELECTRONICALLY SIGNED> By: Phong Nugent MD, FACC 06/28/18 1344 0241 0241 Phong Nugent MD, FAC /EPI
[2018-06-28 20:30] VITALS: BP 108/48
[2018-06-29] VITALS (7 sets, daily range): BP systolic 96–116; BP diastolic 46–55
[2018-06-29 04:52] LABS: HEMATOCRIT 30.4 % (37.0-47.0); HEMOGLOBIN 9.3 gm/dL (12.0-15.0); MCH 21.3 pg (26.0-34.0); MCHC 30.5 g/dL (28.0-37.0); MCV 69.7 fL (80.0-100.0); MPV 7.3 fl. (7.2-11.1); RBC 4.35 mil/uL (4.20-5.00); WBC 9.9 thou/uL (4.0-11.0)
[2018-06-29 05:10] LABS: CALCIUM 9.5 mg/dL (8.5-10.1); MAGNESIUM 2.4 mg/dL (1.8-2.4); POTASSIUM 4.4 mmol/L (3.5-5.1)
[2018-06-29] MEDS ORDERED: PROTONIX40 M1 PO (13:30)
[2018-06-29] MEDS ORDERED: PREDNISONE 20 M20 MG PO (13:30)
[2018-06-29] MEDS ORDERED: AZITHROMYCIN 2250 MG PO (13:30)
[2018-06-29] MEDS ORDERED: LIPITOR 20 MG T20 M1 PO (13:31)
--- NOTE | 2018-06-29 19:38 | CON ---
[address] [address] CONSULTATION Name: ROXANNA JOSEPH Room: [address] IN .R.#: [id number] Admission: 06/28/18 Attend Phys: James Ayala MD Discharge: 06/29/18 Date of : 57 Report #: [id number] THIS REPORT FOR: //name// CC: James Treadwell DICTATED BY: Anabelle Finch [facility] DATE OF SERVICE: 06/28/2018 REASON FOR CONSULTATION: Melanotic stool. Please note at the time of this dictation, the patient was seen and physically examined by myself. HISTORY OF PRESENT ILLNESS: This pleasant 63-year-old female presented to the Emergency Room with increased melanotic stools, which had progressively become darker and darker over the last week and a half. She is also experiencing increased fatigue and shortness of air as well. 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 Prior to that, two years prior, she was in [place], [place] and she had numerous AVMs in her colon that were too numerous to count the last time she was treated there. Otherwise, she states she had been doing relatively well up until a week and a half ago. ALLERGIES: NONSTEROIDALS, PENICILLIN, ASPIRIN, IBUPROFEN. MEDICATIONS: From home, Synthroid, Requip, Ventolin, Paxil, Desyrel, vitamin D, and fluticasone fumarate inhaler. PAST MEDICAL HISTORY: Significant for hereditary hemorrhagic telangiectasia, kidney stones. Also, history of Xiogo-Lgiko-Tryez syndrome, hypothyroid, restless leg, asthma. She has an AVM in her brain. She has had a brain aneurysm that was repaired and she has a coil present. COPD. PAST SURGICAL HISTORY: She has had right lobectomy, emphysema history, and hysterectomy. FAMILY HISTORY: Noncontributory. SOCIAL HISTORY: She continues to smoke tobacco. Denies any alcohol or illegal drug use at this time. REVIEW OF SYSTEMS: Twelve-point review of systems is essentially negative except what is [place] [address] CONSULTATION Name: JAKEROXANNA Garrett Room: [address]#: [id number] Admission: 06/28/18 Attend Phys: James Ayala MD Discharge: 06/29/18 Date of : 57 Report #: [id number] PHYSICAL EXAMINATION: VITAL SIGNS: Temperature 36.8, pulse 90, respirations 18, blood pressure 131/84. HEART: Regular rate and rhythm. LUNGS: Clear, but diminished. ABDOMEN: Soft, positive bowel sounds in all 4 quadrants with some slight epigastric tenderness noted to palpation. LABORATORY DATA: Hemoglobin on admission 7.4. She is getting a unit of blood. In looking back, her baseline back in 2018 was 9.5-10. Platelets 409, white count is normal at 8.8. PT is 9.7, INR is 0.9, GFR is 73. IMPRESSION: 1. Melanotic stool. 2. Shortness of air and fatigue. 3. Epigastric pain. 4. History of hereditary hemorrhagic telangiectasia. PLAN: 1. EGD today with Dr. Carcamo. 2. Further recommendations to be made once the procedure has been performed. Thank you for allowing us to participate in this patient's care. Please do not hesitate to call with any questions in regard to this consult. Agree with evaluation, assessment and plan as outlined above. <ELECTRONICALLY SIGNED> By: Reji Carcamo MD 06/29/18 1938 1040 0140Reji Carcamo MD /nt
== END 2018-06-29 15:26 | disposition home or self-care (01) | DRG 378 ==
LOC: M.ERS 00:52 → M.TBA-ER 02:39 → M.2W 02:39
PROVIDERS: Emergency Medicine; Internal Medicine; ADMIT Family Medicine
PROC: 30233N1 Transfusion of Nonautologous Red Blood Cells into Peripheral Vein, Percutaneous Approach (ICD-10-PCS; principal; 2018-06-28)
PROC: 0W3P8ZZ Control Bleeding in Gastrointestinal Tract, Via Natural or Artificial Opening Endoscopic (ICD-10-PCS; principal; 2018-06-28)
DX: K31.811 Angiodysplasia of stomach and duodenum with bleeding (principal); J44.1 Chronic obstructive pulmonary disease with (acute) exacerbation; E44.1 Mild protein-calorie malnutrition; I78.0 Hereditary hemorrhagic telangiectasia; I10 Essential (primary) hypertension; F32.9 Major depressive disorder, single episode, unspecified; G25.81 Restless legs syndrome; E03.9 Hypothyroidism, unspecified; I25.10 Atherosclerotic heart disease of native coronary artery without angina pectoris; D64.9 Anemia, unspecified; F41.1 Generalized anxiety disorder; F17.210 Nicotine dependence, cigarettes, uncomplicated; Z86.73 Personal history of transient ischemic attack (TIA), and cerebral infarction without residual deficits; Z87.442 Personal history of urinary calculi; Z90.710 Acquired absence of both cervix and uterus; Z79.51 Long term (current) use of inhaled steroids; Z79.899 Other long term (current) drug therapy; Z88.0 Allergy status to penicillin; Z88.6 Allergy status to analgesic agent; Z88.8 Allergy status to other drugs, medicaments and biological substances; Z68.32 Body mass index [BMI] 32.0-32.9, adult

== ENCOUNTER 2018-10-20 21:47 | Emergency (ER) | payer OTHER, MEDICAID ==
[~2018-10-20] VITALS: Ht 157.5 cm; Wt 81.7 kg
[~2018-10-20 21:47] MED LIST changes: +AZITHROMYCIN 2250 MG PO; +IRON325 PO; +PREDNISONE 20 M20 MG PO; +PROTONIX40 M1 PO
[2018-10-20 22:54] LABS: ABSOLUTE BASOPHILS 0.1 thou/uL (0.0-0.2); ABSOLUTE EOSINOPHILS 0.3 thou/uL (0.0-0.7); ABSOLUTE MONOCYTES 0.7 thou/uL (0.0-1.2); ABSOLUTE NEUTROPHILS 2.9 thou/uL (1.6-8.1); BASOPHILS 1.3 %; EOSINOPHILS 5.2 %; HEMATOCRIT 26.6 % (37.0-47.0); LYMPHOCYTES 33.3 %; MCH 18.4 pg (26.0-34.0); MCV 61.3 fL (80.0-100.0); MPV 7.1 fl. (7.2-11.1); NUCLEATED RBCS 0 /100WBC; PLATELET COUNT* 486 thou/uL (150-400); POLYS 48.2 %; RBC 4.33 mil/uL (4.20-5.00); RDW-CV 21.1 % (10.5-14.5)
[2018-10-20 22:56] LABS: URINE BILIRUBIN NEGATIVE (Negative); URINE BLOOD NEGATIVE (Negative); URINE CLARITY CLEAR; URINE COLOR STRAW; URINE GLUCOSE-RANDOM NEGATIVE (Negative); URINE KETONES NEGATIVE (Negative); URINE LEUKOCYTES-REFLEX 1+ (Negative); URINE NITRITE-REFLEX NEGATIVE (Negative); URINE PROTEIN NEGATIVE (Negative); URINE SPECIFIC GRAVITY <= 1.005 (1.005-1.030); URINE UROBILINOGEN 0.2 E.U./dl (0.2-1.0)
[2018-10-20 23:07] LABS: ANION GAP 7 mmol/L (7-16); BUN 7 mg/dL (7-18); CHLORIDE 105 mmol/L (98-107); CO2 29 mmol/L (21-32); CREATININE 0.7 mg/dL (0.6-1.3); GLUCOSE 92 mg/dL (70-99); POTASSIUM 4.6 mmol/L (3.5-5.1); SODIUM 141 mmol/L (136-145)
[2018-10-20 23:09] LABS: APTT 28.5 Seconds (25.0-31.3)
[2018-10-20 23:17] LABS: CASTS None Seen /LPF (None Seen); SQUAMOUS >10 Many /LPF (0-3)
[2018-10-20 23:18] LABS: URINE RBC None Seen /HPF (0-2); URINE WBC-REFLEX 6-15 Few /HPF (0-5)
[2018-10-20 23:19] LABS: BACTERIA-REFLEX 1-9 Few /HPF (None Seen); CRYSTALS None Seen /LPF (None Seen)
[2018-10-20 23:21] LABS: ALBUMIN 3.7 g/dL (3.4-5.0); ALKALINE PHOSPHATASE 84 U/L (46-116); NT-PRO BRAIN NAT PEPTIDE 45 pg/mL (<300); SGOT 13 U/L (15-37); SGPT 18 U/L (30-65); TOTAL BILIRUBIN 0.3 mg/dL (<0.1-1.0); TOTAL PROTEIN 7.4 g/dL (6.4-8.2); TROPONIN-I LEVEL <0.06 ng/mL (<0.06)
[2018-10-20 23:26] LABS: ANISOCYTOSIS 2+; PLATELET ESTIMATE INCREASED
[2018-10-20 23:27] LABS: HYPOCHROMASIA 2+; POLYCHROMASIA 2+
[2018-10-20 23:28] LABS: MICROCYTES 2+
[2018-10-20 23:29] LABS: OVALOCYTES Occasional; TARGET CELLS Occasional
[2018-10-21] MEDS ORDERED: NORCO 5-325 TA1 EAC1 PO (00:02)
[2018-10-21] MEDS ORDERED: CIPROFLOXACIN500 M1 PO (00:02)
[2018-10-21 00:26] VITALS: BP 157/58
--- NOTE | 2018-10-22 10:50 | EKG ---
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 10/22/18 1050 51 51 Graeme Simon MD, FAC /EPI
== END 2018-10-21 00:29 | disposition home or self-care (01) ==
LOC: M.ERS 21:47
PROVIDERS: Family Medicine
DX: N39.0 Urinary tract infection, site not specified (principal); D64.9 Anemia, unspecified; F17.210 Nicotine dependence, cigarettes, uncomplicated; E03.9 Hypothyroidism, unspecified; G25.81 Restless legs syndrome; J44.9 Chronic obstructive pulmonary disease, unspecified; Z90.710 Acquired absence of both cervix and uterus; Z88.6 Allergy status to analgesic agent; Z88.0 Allergy status to penicillin; Z88.8 Allergy status to other drugs, medicaments and biological substances; Z87.442 Personal history of urinary calculi

== ENCOUNTER 2019-01-01 18:02 | Emergency (ER) | payer OTHER, MEDICAID ==
[~2019-01-01] VITALS: Ht 157.5 cm; Wt 81.7 kg
[2019-01-01 18:25] LABS: ABSOLUTE BASOPHILS 0.1 thou/uL (0.0-0.2); ABSOLUTE EOSINOPHILS 0.2 thou/uL (0.0-0.7); ABSOLUTE LYMPHOCYTES 1.5 thou/uL (0.8-5.3); ABSOLUTE MONOCYTES 0.7 thou/uL (0.0-1.2); ABSOLUTE NEUTROPHILS 4.2 thou/uL (1.6-8.1); BASOPHILS 1.1 %; EOSINOPHILS 3.6 %; HEMATOCRIT 27.1 % (37.0-47.0); LYMPHOCYTES 22.6 %; MCH 17.8 pg (26.0-34.0); MCHC 29.4 g/dL (28.0-37.0); MCV 60.7 fL (80.0-100.0); MONOCYTES 10.5 %; MPV 6.7 fl. (7.2-11.1); NUCLEATED RBCS 0 /100WBC; PLATELET COUNT* 537 thou/uL (150-400); POLYS 62.2 %; RBC 4.47 mil/uL (4.20-5.00); RDW-CV 21.9 % (10.5-14.5); WBC 6.8 thou/uL (4.0-11.0)
[2019-01-01 18:39] LABS: ANION GAP 10 mmol/L (7-16); BUN 9 mg/dL (7-18); CALCIUM 8.6 mg/dL (8.5-10.1); CHLORIDE 103 mmol/L (98-107); CO2 26 mmol/L (21-32); CREATININE 0.7 mg/dL (0.6-1.3); GLUCOSE 114 mg/dL (70-99); POTASSIUM 3.6 mmol/L (3.5-5.1); SODIUM 139 mmol/L (136-145)
[2019-01-01 18:40] LABS: APTT 27.6 Seconds (25.0-31.3); PROTIME 10.2 Seconds (9.20-11.50)
[2019-01-01 18:51] LABS: ALBUMIN 3.6 g/dL (3.4-5.0); ALKALINE PHOSPHATASE 87 U/L (46-116); CK-MB MASS 0.8 ng/mL (<0.5-3.6); LIPASE 94 U/L (73-393); MAGNESIUM 1.9 mg/dL (1.8-2.4); NT-PRO BRAIN NAT PEPTIDE 127 pg/mL (<300); SGOT 12 U/L (15-37); SGPT 18 U/L (30-65); TOTAL BILIRUBIN 0.3 mg/dL (<0.1-1.0); TOTAL PROTEIN 7.1 g/dL (6.4-8.2); TROPONIN-I LEVEL <0.06 ng/mL (<0.06)
[2019-01-01] MEDS ORDERED: NORCO 5-325 TA1 EAC1 PO (18:57)
[2019-01-01 19:01] VITALS: BP 135/69
[2019-01-01 19:03] LABS: OVALOCYTES 1+; PLATELET ESTIMATE ADEQUATE
[2019-01-01 19:04] LABS: ANISOCYTOSIS 2+; MICROCYTES 3+
[2019-01-01 19:05] LABS: HYPOCHROMASIA 3+
--- NOTE | 2019-01-02 10:14 | EKG ---
[place] [address] ELECTROCARDIOGRAM REPORT Name: ROXANNA JOSEPH Room: 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: : 1955 Requested By: Ryder Franco Order Number: [id number] MD: Graeme Simon Measurements Intervals [place] Rate: 95 P: 62 GA: 128 QRS: 83 QRSD: 98 T: 53 QT: 382 QTc: 481 Interpretive Statements Sinus rhythm Borderline right axis deviation Borderline T abnormalities, anterior leads Compared to ECG 10/20/2018 22:52:23 no change Electronically Signed On 01-02-2019 10:14:08 CDT by Graeme Simon [email or web address] <ELECTRONICALLY SIGNED> By: Graeme Simon MD, [facility] 01/02/19 1014 05 05 Graeme Simon MD, FACC /EPI
== END 2019-01-01 19:01 | disposition home or self-care (01) ==
LOC: M.ERS 18:02
PROVIDERS: Family Medicine
DX: R07.89 Other chest pain (principal); E03.9 Hypothyroidism, unspecified; G25.81 Restless legs syndrome; J44.9 Chronic obstructive pulmonary disease, unspecified; F17.210 Nicotine dependence, cigarettes, uncomplicated; Z88.0 Allergy status to penicillin; Z88.6 Allergy status to analgesic agent; Z87.442 Personal history of urinary calculi; Z90.710 Acquired absence of both cervix and uterus

== ENCOUNTER 2019-01-09 23:00 | Emergency (ER) | payer OTHER, MEDICAID ==
[~2019-01-09] VITALS: Ht 157.5 cm; Wt 84.4 kg
[2019-01-09 23:16] LABS: URINE BILIRUBIN NEGATIVE (Negative); URINE BLOOD TRACE (Negative); URINE COLOR YELLOW; URINE GLUCOSE-RANDOM NEGATIVE (Negative); URINE KETONES NEGATIVE (Negative); URINE NITRITE-REFLEX NEGATIVE (Negative); URINE PROTEIN NEGATIVE (Negative); URINE SPECIFIC GRAVITY 1.015 (1.005-1.030); URINE UROBILINOGEN 0.2 E.U./dl (0.2-1.0)
[2019-01-09 23:17] LABS: URINE CLARITY SL CLOUDY; URINE LEUKOCYTES-REFLEX 3+ (Negative)
[2019-01-09 23:24] LABS: BACTERIA-REFLEX >30 Many /HPF (None Seen); CASTS None Seen /LPF (None Seen); CRYSTALS None Seen /LPF (None Seen); MUCUS 4-6 Moderate strn/LPF (None Seen); SQUAMOUS 0-3 Few /LPF (0-3); URINE RBC 3-10 Few /HPF (0-2); URINE WBC-REFLEX 6-15 Few /HPF (0-5)
[2019-01-09 23:25] LABS: ABSOLUTE BASOPHILS 0.1 thou/uL (0.0-0.2); ABSOLUTE EOSINOPHILS 0.2 thou/uL (0.0-0.7); ABSOLUTE LYMPHOCYTES 1.7 thou/uL (0.8-5.3); ABSOLUTE NEUTROPHILS 4.1 thou/uL (1.6-8.1); EOSINOPHILS 2.4 %; HEMATOCRIT 26.6 % (37.0-47.0); HEMOGLOBIN 7.9 gm/dL (12.0-15.0); LYMPHOCYTES 24.3 %; MCH 17.7 pg (26.0-34.0); MCHC 29.5 g/dL (28.0-37.0); MCV 59.9 fL (80.0-100.0); MONOCYTES 13.6 %; MPV 8.3 fl. (7.2-11.1); NUCLEATED RBCS 0 /100WBC; PLATELET COUNT* 470 thou/uL (150-400); POLYS 58.7 %; RBC 4.44 mil/uL (4.20-5.00); RDW-CV 21.1 % (10.5-14.5)
[2019-01-09 23:32] LABS: CREATININE 0.8 mg/dL (0.6-1.3); POTASSIUM 3.4 mmol/L (3.5-5.1)
[2019-01-09 23:36] LABS: ALBUMIN 3.3 g/dL (3.4-5.0); TOTAL BILIRUBIN 0.3 mg/dL (<0.1-1.0)
[2019-01-09 23:56] LABS: ANISOCYTOSIS 2+; HYPOCHROMASIA 2+; MICROCYTES 2+
[2019-01-10] MEDS ORDERED: ZOFRAN ODT4 MG SUBLING (00:21)
[2019-01-10] MEDS ORDERED: NORCO 5-325 TA1 EAC1 PO (00:21)
[2019-01-10] MEDS ORDERED: MACROBID 100 M100 M1 PO (00:24)
[2019-01-10 00:32] VITALS: BP 134/61
== END 2019-01-10 00:34 | disposition home or self-care (01) ==
LOC: M.ERS 23:00
PROVIDERS: Family Medicine
DX: N39.0 Urinary tract infection, site not specified (principal); M54.9 Dorsalgia, unspecified; J44.9 Chronic obstructive pulmonary disease, unspecified; E03.9 Hypothyroidism, unspecified; Z90.710 Acquired absence of both cervix and uterus; Z98.890 Other specified postprocedural states; Z90.2 Acquired absence of lung [part of]; Z87.442 Personal history of urinary calculi

== ENCOUNTER 2021-01-14 15:21 | Emergency (ER) | payer OTHER, MEDICAID ==
[~2021-01-14] VITALS: Ht 157.5 cm; Wt 58.1 kg
[~2021-01-14 15:21] MED LIST changes: +ZOFRAN ODT4 MG SUBLING
[2021-01-14 16:28] VITALS: BP 139/64
== END 2021-01-14 16:28 | disposition home or self-care (01) ==
LOC: M.ERS 15:21
DX: S61.512A Laceration without foreign body of left wrist, initial encounter (principal); E03.9 Hypothyroidism, unspecified; J45.909 Unspecified asthma, uncomplicated; F17.210 Nicotine dependence, cigarettes, uncomplicated; Z88.6 Allergy status to analgesic agent; Z88.0 Allergy status to penicillin; Z90.710 Acquired absence of both cervix and uterus; Z87.442 Personal history of urinary calculi; W26.0XXA Contact with knife, initial encounter; Y93.89 Activity, other specified; Y92.89 Other specified places as the place of occurrence of the external cause; Y99.8 Other external cause status